=== PATIENT | male | born 1960 | race Caucasian/White ===

== ENCOUNTER 2018-10-15 05:52 | Emergency (ER) | payer OTHER, BC ==
[~2018-10-15] VITALS: Ht 185.4 cm; Wt 77.1 kg
[2018-10-15 06:02] VITALS: BP 112/71
[2018-10-15] MEDS ORDERED: NAPR-514 PO (06:29)
[2018-10-15] MEDS ORDERED: HYDR-3164 PO (06:29)
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
--- NOTE | 2018-10-15 06:37 | RAD ---
Three-view right wrist radiographs 10/15/2018 CLINICAL HISTORY: Right wrist pain. PA, lateral and oblique digital radiographs of the right wrist were obtained. There is diffuse osteopenia of the visualized bony structures. No fracture or dislocation of the right wrist is seen. Chondrocalcinosis is seen involving the radiocarpal joint. Mild to moderate degenerative changes are seen involving the radiocarpal joint, mid carpal joint and the first carpal metacarpal joint. Moderate degenerative changes are seen involving the first MCP joint. Calcification of the radial and ulnar arteries is noted. IMPRESSION: Degenerative changes are seen involving the right wrist as discussed above. No acute osseous abnormality is seen. Electronically signed by: Brayden Fitch MD (10/15/2018 6:34 AM) [facility]
== END 2018-10-15 06:47 | disposition home or self-care (01) ==
LOC: ER 05:52
DX: S52.614A Nondisplaced fracture of right ulna styloid process, initial encounter for closed fracture (principal); W51.XXXA Accidental striking against or bumped into by another person, initial encounter; Y93.89 Activity, other specified; Y92.512 Supermarket, store or market as the place of occurrence of the external cause; Y99.0 Civilian activity done for income or pay
CPT/HCPCS: 29125; 73110; 99284-25